=== PATIENT | female | born 1960 | race Caucasian/White ===

== ENCOUNTER 2016-12-19 15:49 | Emergency (ER) | END 2016-12-19 17:05 | disposition left against medical advice (07) | LOC: UCCORT 15:49 | DX: M79.605 Pain in left leg (principal); Z53.21 Procedure and treatment not carried out due to patient leaving prior to being seen by health care provider ==

== ENCOUNTER 2017-07-03 15:15 | Emergency (ER) | payer BC ==
[2017-07-03 18:21] VITALS: BP 115/82
[2017-07-03] MEDS ORDERED: Fluorescein Sodium TOPICAL* 1 MG TEST OPHTHALMIC ONE (18:22)
--- NOTE | 2017-07-03 18:30 | UC ---
Eye Complaint HPI - HPI Summary HPI Summary: L eye FB sensation, irritation starting 3-4 days ago. Some drainage, some runny nose. Denies known injury/trauma. Works around people with brain injury, needs tx if she has pink eye. - History of Current Complaint Chief Complaint: Ahsane Stated Complaint: PINK EYE Time Seen by Provider: 07/03/17 18:16 Hx Obtained From: Patient Hx Last Menstrual Period: had ablation ?: No Onset/Duration: Gradual Onset, Lasting Days Timing: Constant Severity Initially: Mild Severity Currently: Mild Location of Injury: Conjunctiva Character: Dull, Foreign Body Sensation Aggravating Factor(s): Nothing Alleviating Factor(s): Nothing Associated Signs And Symptoms: Positive: Drainage (Clear) - Allergies/Home Medications Allergies/Adverse Reactions: Allergies Allergy/AdvReac Type Severity Reaction Status Date / Time seasonal Allergy Congestion Uncoded 07/03/17 18:21 Home Medications: Home Medications Bismuth Subsalicylate [Pepto-Bismol Max Strength] 525 mg PO DAILY 07/03/17 [ History Confirmed 07/03/17] PMH/Surg Hx/FS Hx/Imm Hx Endocrine History: Dyslipidemia Cardiovascular History: Hypertension GI/ History: Gastroesophageal Reflux - Surgical History Surgical History: Yes Surgery Procedure, Year, and Place: tubal, hernia, varicose veins, uterine ablation - Family History Known Family History: Positive: Hypertension, Other - [place] (dad) - Social History Occupation: Employed Full-time Alcohol Use: Rare Substance Use Type: None Smoking Status (MU): Heavy Every Day Tobacco Smoker Type: Cigarettes Amount Used/How Often: 2-3 ppd Length of Time of Smoking/Using Tobacco: 41 yrs Have You Smoked in the Last Year: Yes Review of Systems Constitutional: Fatigue Skin: Negative Eyes: Drainage, Eye Redness ENT: Negative Respiratory: Negative Cardiovascular: Negative Gastrointestinal: Negative Genitourinary: Negative Motor: Negative Neurovascular: Negative Musculoskeletal: Negative Neurological: Negative Psychological: Negative Is Patient Immunocompromised?: No All Other Systems Reviewed And Are Negative: Yes Physical Exam Triage Information Reviewed: Yes Appearance: No Pain Distress, Obese Vital Signs: Initial Vital Signs Temp 97.7 F 07/03/17 18:17 Pulse 72 07/03/17 18:17 Resp 17 07/03/17 18:17 BP 115/82 07/03/17 18:17 Pulse Ox 99 07/03/17 18:17 Vital Signs Reviewed: Yes Eye Exam: Other - PERRL, EOM-I Eyes: Positive: Conjunctiva Inflamed, Other: - fluorescein dye test negative for uptake in L eye ENT Exam: Normal ENT: Positive: Normal ENT inspection, Hearing grossly normal, Pharynx normal, TM dull Dental Exam: Other - dentures Neck exam: Normal Respiratory Exam: Normal Respiratory: Positive: Chest non-tender, Lungs clear, Normal breath sounds, No respiratory distress, No accessory muscle use Cardiovascular Exam: Normal Cardiovascular: Positive: RRR, No Murmur Musculoskeletal Exam: Normal Neurological Exam: Normal Neurological: Positive: Alert Psychological Exam: Normal Skin Exam: Other - excoriations/irritation on neck under chin Eye Complaint Course/Dx - Differential Dx/Diagnosis Provider Diagnoses: L eye conjunctivitis Discharge - Discharge Plan Condition: Stable Disposition: HOME Prescriptions: Ciprofloxacin 0.3% OPTH.SAMUEL* [Cipro 0.3% Opth*] 2 drop LEFT EYE QID #5 ml Patient Education Materials: Conjunctivitis (ED) Referrals: Rica Chavira MD [Primary Care Provider] - Additional Instructions: See your primary care provider or return here if you still have symptoms after 1 week.
== END 2017-07-03 18:43 | disposition home or self-care (01) ==
LOC: UCCORT 15:15
DX: H10.32 Unspecified acute conjunctivitis, left eye (principal); R53.83 Other fatigue; E78.5 Hyperlipidemia, unspecified; I10 Essential (primary) hypertension; K21.0 Gastro-esophageal reflux disease with esophagitis; E66.9 Obesity, unspecified; F17.210 Nicotine dependence, cigarettes, uncomplicated
CPT/HCPCS: 99212; A9270-GY; G0463

== ENCOUNTER 2019-07-12 11:58 | Emergency (ER) | payer BC ==
[2019-07-12 13:21] VITALS: BP 120/76
--- NOTE | 2019-07-12 14:01 | ED ---
Upper Extremity Pain - HPI Summary HPI Summary: 59 yr old female with the complaint of right shoulder pain. Onset of pain was prior to arrival. She was at the [employer] and lifting a turkey, and felt pain in the right lateral posterior shoulder. Pain is worse with any attempted overhead movement. No numbness or weakness in the hand. No other complaints. - History of Current Complaint Chief Complaint: UCUpperExtremity Stated Complaint: RIGHT SHOULDER PAIN Time Seen by Provider: 07/12/19 13:29 Hx Last Menstrual Period: had ablation - Allergies/Home Medications Allergies/Adverse Reactions: Allergies Allergy/AdvReac Type Severity Reaction Status Date / Time "Starts with a "D"" Allergy Unknown Uncoded 07/12/19 13:15 Reaction Details seasonal Allergy Congestion Uncoded 07/12/19 13:15 Home Medications: Home Medications Allopurinol TAB* [Zyloprim 100 MG TAB*] 100 mg PO BID 07/12/19 [History Confirmed 07/12/19] Cyclobenzaprine TAB* [Flexeril 10 MG TAB*] 10 mg PO TID 07/12/19 [History Confirmed 07/12/19] Diclofenac Sodium 50 mg PO BID PRN 07/12/19 [History Confirmed 07/12/19] Simvastatin TAB(NF) [Zocor(NF)] 20 mg PO QPM 07/12/19 [History Confirmed ] PMH/Surg Hx/FS Hx/Imm Hx Cardiovascular History: Reports: Hx Hypertension Respiratory History: Reports: Hx Pneumonia - Surgical History Surgery Procedure, Year, and Place: tubal, hernia, varicose veins, uterine ablation Infectious Disease History: No Infectious Disease History: Denies: Traveled Outside the [place] in Last 30 Days - Family History Known Family History: Positive: Hypertension, Other - [place] (dad) - Social History Alcohol Use: Rare Substance Use Type: Reports: None Smoking Status (MU): Heavy Every Day Tobacco Smoker Type: Cigarettes Amount Used/How Often: 1-2 PPD Length of Time of Smoking/Using Tobacco: Since Age 13 Have You Smoked in the Last Year: Yes Review of Systems Constitutional: Negative Positive: Other - right shoulder pain All Other Systems Reviewed And Are Negative: Yes Physical Exam Triage Information Reviewed: Yes Vital Signs On Initial Exam: Initial Vitals Temp Pulse Resp BP Pulse Ox 98.1 F 88 20 120/76 100 07/12/19 13:11 07/12/19 13:11 07/12/19 13:11 07/12/19 13:11 07/12/19 13:11 Vital Signs Reviewed: Yes Appearance: Positive: Well-Appearing, No Pain Distress Skin: Positive: Warm, Skin Color Reflects Adequate Perfusion Head/Face: Positive: Normal Head/Face Inspection Eyes: Positive: EOMI ENT: Positive: Normal ENT inspection Neck: Positive: Nontender Respiratory/Lung Sounds: Positive: Clear to Auscultation, Breath Sounds Present Cardiovascular: Positive: Pulses are Symmetrical in both Upper and Lower Extremities Abdomen Description: Negative: Distended Musculoskeletal: Positive: Other - right hand with normal neuro vasc. She is tender over the lateral right shoulder and posterior right shoulder. She has pain that is worse with movement. and particularly lifting up arm in abduction or flexion movement. Neurological: Positive: Sensory/Motor Intact, Alert, Oriented to Person Place, Time, CN Intact II-III, Speech Normal Psychiatric: Positive: Normal Diagnostics - Vital Signs Vital Signs Temp Pulse Resp BP Pulse Ox 07/12/19 13:11 98.1 F 88 20 120/76 100 - Laboratory Lab Statement: Any lab studies that have been ordered have been reviewed, and results considered in the medical decision making process. Course/Dx - Course Course Of Treatment: 59 yr old with right shoulder pain. Plan DC home. FU with Ortho. - Diagnoses Provider Diagnoses: Injury of right rotator cuff Discharge ED - Sign-Out/Discharge Documenting (check all that apply): Patient Departure All imaging exams completed and their final reports reviewed: Yes - Discharge Plan Condition: Good Disposition: HOME Patient Education Materials: Rotator Cuff Injury (ED), Shoulder Pain (ED) Referrals: Gita Samuel MD [Primary Care Provider] - 2 Days Miller Pozo MD [Medical Doctor] - 2 Days - Billing Disposition and Condition Condition: GOOD Disposition: Home
== END 2019-07-12 14:13 | disposition home or self-care (01) ==
LOC: UCCORT 11:58
DX: S46.001A Unspecified injury of muscle(s) and tendon(s) of the rotator cuff of right shoulder, initial encounter (principal); I10 Essential (primary) hypertension; F17.210 Nicotine dependence, cigarettes, uncomplicated; Z91.09 Other allergy status, other than to drugs and biological substances; X50.0XXA Overexertion from strenuous movement or load, initial encounter; Y93.89 Activity, other specified; Y92.512 Supermarket, store or market as the place of occurrence of the external cause
CPT/HCPCS: 99211; G0463

== ENCOUNTER 2019-10-02 05:22 | Day surgery (SDC) | payer BC ==
[~2019-10-02 05:22] MED LIST: Buffered Lidocaine 1% SYRIN* 1 ML/SYRINGE INTRADERM ONE
[2019-10-02] MEDS ORDERED: Acetaminophen TAB* 325 MG PO ONE (06:00)
[2019-10-02] MEDS ORDERED: Lactated Ringers 1000 ML Bag* 1,000 ML IV SCH (06:00)
[2019-10-02] MEDS ORDERED: ceFAZolin 2 GM in NS PREMIX(*) 2 GM/100 ML BAG IVPB ONE (06:07)
[2019-10-02] MEDS ORDERED: ceFAZolin 1 GM ADVAN(*) 1 GM ADDV.VIAL IVPB ONE (06:07)
[2019-10-02] MEDS ORDERED: Acetaminophen TAB* 325 MG ONE (06:07)
[2019-10-02] MEDS ORDERED: Midazolam* 1 MG/ML 2 ML VIAL (2 MG) ONE (06:53)
[2019-10-02] MEDS ORDERED: Lidocaine 2% PF * 5 ML VIAL ONE (06:54)
[2019-10-02] MEDS ORDERED: fentaNYL* 50 MCG/ML 5 ML VIAL (250 MCG VIAL) ONE (06:54)
[2019-10-02] MEDS ORDERED: Propofol* 10 MG/ML 20 ML BTL ONE (06:54)
[2019-10-02] MEDS ORDERED: Bupivacaine 0.5% W/EPI SDV* 10 ML VIAL INJ ONE (06:59)
[2019-10-02] MEDS ORDERED: EPINEPHRINE 1 MG/ML 1 ML VIAL ONE (06:59)
[2019-10-02] MEDS ORDERED: Rocuronium* 10 MG/ML VIAL ONE (07:00)
[2019-10-02] MEDS ORDERED: ROPIVACAINE 5 MG/ML 30 ML BTL (0.5%) ONE ×2 (07:08→10:21)
[2019-10-02] MEDS ORDERED: Remifentanil* 2 MG VIAL ONE (07:45)
[2019-10-02] MEDS ORDERED: HYDROmorphone INJ1* 1 MG/ML SYRINGE ONE (08:20)
[2019-10-02] MEDS ORDERED: Dexamethasone IV* 4 MG/ML 1 ML (4 MG) ONE (08:27)
[2019-10-02] MEDS ORDERED: Ketorolac INJ* 30 MG/ML 1 ML VIAL ONE (08:48)
[2019-10-02] MEDS ORDERED: Glycopyrrolate IV* 0.2 MG/ML 1 ML VIAL ONE ×2 (08:48→11:02)
[2019-10-02] MEDS ORDERED: Ondansetron INJ* 2 MG/ML VIAL ONE (08:48)
[2019-10-02] MEDS ORDERED: Neostigmine Methylsulfate* 3 MG/3 ML SYRINGE ONE (08:48)
[2019-10-02] MEDS ORDERED: PROCHLORPERAZINE INJ 5 MG/ML 2 ML VIAL IV PRN (08:49)
[2019-10-02] MEDS ORDERED: diPHENhydraMINE IV* 50 MG/ML 1 ml VIAL (BENADRYL) IV PRN (08:49)
[2019-10-02] MEDS ORDERED: Naloxone* 0.4 MG/ML 1 ML VIAL IV PRN (08:49)
[2019-10-02] MEDS ORDERED: HYDROmorphone INJ1* 1 MG/ML SYRINGE IV PRN (08:49)
[2019-10-02] MEDS ORDERED: PROCHLORPERAZINE INJ 5 MG/ML 2 ML VIAL ONE (10:23)
[2019-10-02] MEDS ORDERED: oxyCODONE TAB* 5 MG TAB ONE (10:23)
[2019-10-02] MEDS: oxyCODONE TAB* 5 MG TAB PO PRN ×2 (10:35→10:36)
[2019-10-02 11:36] VITALS: BP 125/81
--- NOTE | 2019-10-03 01:38 | OP ---
DATE OF OPERATION: 10/02/19 [facility] DATE OF : 62 SURGEON: Dr. Junior Brennan. HUMAN SERVICES PROGRAM SPECIALIST: DANNI Perez. A physician assistant manager was required for the length of the procedure for assistance with patient positioning, instrumentation , and closure. ANESTHESIOLOGIST: Dr. Leona Aguirre. ANESTHESIA: General anesthesia, regional interscalene block anesthesia. PRE-OP DIAGNOSES: 1. Right shoulder rotator cuff tears, supraspinatus, infraspinatus, full thickness, retracted. 2. Right shoulder subacromial impingement and bursitis. 3. Right shoulder acromioclavicular joint osteoarthritis. 4. Possible right shoulder biceps tendinosis. POST-OP DIAGNOSES: 1. Right shoulder rotator cuff tendon tears, supraspinatus, infraspinatus, full thickness, retracted. 2. Right shoulder subacromial impingement and bursitis. 3. Right shoulder mild acromioclavicular joint osteoarthritis. 4. Right shoulder superior labral tear. OPERATIVE PROCEDURE: 1. Right shoulder arthroscopic rotator cuff tendon repair, supraspinatus, infraspinatus with a double-row fixation construct. 2. Right shoulder arthroscopic subacromial decompression. 3. Right shoulder arthroscopic limited debridement including long head biceps tendon release and anterior interval slide as well as generalized debridement to otherwise mobilized rotator cuff tendons. ANTIBIOTICS: Ancef 3 g IV. IV FLUIDS: See Anesthesia note. TOAB-DD-IPGK TIME: 83 minutes. SPECIMEN: None. IMPLANTS: Arthrex Corkscrew 5.5-mm suture anchors double-loaded with sutured tape x2. Arthrex 5.5-mm SwiveLock suture anchor x1. COMPLICATIONS: None. ESTIMATED BLOOD LOSS: Minimal. INDICATIONS FOR PROCEDURE: The patient is a 59-year-old woman, right-hand dominant, who has a 47-ubot-dwlc history of cigarette smoking and has a job with duties including doing laundry and dishes, who presented to me after being referred by a partner for injuries to the right shoulder in June and July 2019. The patient failed to respond sufficiently to nonoperative management and opted for surgery. MRI demonstrated bony changes consistent with subacromial impingement as well as subacromial bursitis. There were supraspinatus and infraspinatus rotator cuff tendon tears. Supraspinatus was retracted to somewhere between the apex and the glenoid, closer to the glenoid. Much of the infraspinatus seemed similarly torn and retracted. There was much fatty atrophy of the infraspinatus muscle on sagittal slices. I discussed the surgery with the patient. Because of her history of cigarette smoking as well as her amount of retraction and fatty atrophy, this procedure has a much higher than average likelihood of failure. I booked the patient for rotator cuff tendon repair versus superior capsular repair versus partial rotator cuff tendon repair, based on the repairability of the supraspinatus and the infraspinatus that I would find intraoperatively. Given that preoperatively, the patient had an extensor lag to 0 degrees with the arm at the side and infraspinatus muscle fatty atrophy along with the history of cigarette smoking, I was not particularly confident about the stoutness of the patient's infraspinatus and her candidacy for superior capsule repair, but I kept all possibilities open. I spoke to the patient about the importance of cigarette smoking cessation. Interestingly in the contralateral left shoulder on exam, the patient had a lag to 10 degrees of external rotation with the arm at the side. She also had worst pain and weakness with supraspinatus and infraspinatus stress testing. This led me to think that the patient likely has a chronic massive rotator cuff tear in the contralateral left shoulder as well that she has just grown accustomed to and has stopped being painful. Discussed risks and potential complications of surgery including the potential for rerupture. DESCRIPTION OF PROCEDURE: In preoperative holding, the patient signed a written consent. Operative extremity was marked in preoperative holding. The patient underwent a regional interscalene nerve block by Dr. Aguirre in preoperative holding. The patient was brought back to the operating room and placed supine on the operating room table. The patient was sedated and intubated. After a mini time-out was performed, an examination under anesthesia of the right shoulder demonstrated full passive range of motion. The patient was placed in the lateral decubitus position with the right shoulder up. Axillary roll placed. Beanbag hardened. All bony prominences padded. Right upper extremity placed in 15 pounds of longitudinal traction with the appropriate amount of shoulder forward flexion and abduction. Right shoulder was prepped and draped. Surgical time-out performed. I entered a spinal needle into the glenohumeral joint from posterior about the right shoulder. I infused 30 cc of normal saline. I established a posterior glenohumeral joint portal. I commenced my diagnostic arthroscopy. The patient did not have any advanced osteoarthritic changes of the glenohumeral joint. Nothing worst than grade 0 or grade 1. There was a tiny bit of elevation superiorly of the humeral head appreciated. Subscapularis tendon had no tear. Looking superiorly, the patient clearly had full thickness tears of the supraspinatus and infraspinatus as much of their footprints were bare on the humeral head. There was only a hyperemic solitary streak on the long head biceps tendon so that was otherwise relatively normal. However, there was an unstable superior labral tear. I established an anterior glenohumeral joint portal under direct visualization. I probed the superior labrum and found it to be unstable with this tear. I brought an arthroscopic scissors in and released the long head biceps tendon near its origin. I debrided some of the superior labrum with an arthroscopic shaver. I established anterior and posterior subacromial portals. I then made posterolateral and lateral portals under direct visualization. I debrided the subacromial bursitis with an arthroscopic shaver. I next assessed the rotator cuff tendons. Supraspinatus and much of the infraspinatus was clearly visible to be retracted to the level of glenoid. When I first used a rotator cuff grasper to try to lateralize the supraspinatus , the cuff grasper pulled through tendon. This was not inspiring with regards to the quality of the tendon tissue. There was some synovitis posteriorly that I debrided coming down on to the actual infraspinatus. Some of the infraspinatus had clearly listed inferiorly while some of it still was intact in its insertion of the humeral head. I placed a traction stitch in the supraspinatus. I first decided to superiorize some of the intact infraspinatus. I thought that this would help cover some of the humeral head and then give me a feel for the appropriateness of either superior capsule repair or rotator cuff repair. Through a superolateral poke hole, I placed a Corkscrew suture anchor. This was placed slightly more medial than lateral in the footprint. I then used a scorpion suture passer to pass 2 horizontal mattress stitches in the infraspinatus. This superiorized some of the intact infraspinatus. I next evaluated the supraspinatus. Surprisingly, I was able to pivot humeral head. Given my lack of confidence in the infraspinatus and patient's smoking, my preference was for a simple rotator cuff repair rather than a superior capsule repair. I next performed an anterior interval slide, releasing tissue in the rotator cuff interval, which did improve the mobilization of the supraspinatus. I placed next through a superolateral poke hole a Corkscrew suture anchor more lateral than medial in the supraspinatus footprint. I was not sure what type of excursion of the tendon or quality repair I would get. My expectations were limited placing this anchor. However, I was very surprised by the result. I placed 2 horizontal mattress stitches using a Affleion suture passer and I tied as I went. This brought a solid amount of tendon down to bone. As I said before this anchor was more lateral than medial in the footprint but nonetheless I brought the tendon to bone under minimum of tension. This covered the entirety of the footprint except for perhaps 5% of it anteriorly. I was very happy with this. Given the success of my first 2 anchors, I decided to add a lateral row anchor. A SwiveLock was placed using the stitches from the 2 medial row anchors. I moved the humerus and probed the repair and it was good. Again, my expectations on healing are modest given this patient's smoking history and the likely temporal nature and stiffness of her rotator cuff tendons; however, this was an excellent repair surprisingly. I next performed a subacromial decompression. I used an arthroscopic emigdio to smooth out the undersurface of the anterior aspect of the acromion. I was not aggressive releasing the coracoacromial ligament as I wanted to avoid any possibility of future anterosuperior escape. I assessed the AC joint. There were no large spurs about it so I held off on a distal clavicle resection. Fluid and instruments were removed from the subacromial space. Closed skin incisions with [id number] 12 stitches using nylon 3.0 suture. Xeroform, 4x4's, ABDs, foam tape. Sling and abduction pillow. The patient was awakened and transferred to the PACU. DISPOSITION: The patient will be in a sling at all times for at least 6 weeks postoperatively if not 8. Percocet as needed for pain control. No physical therapy at this time. The patient will follow up with me in 10 to 14 days postoperatively. I also again reminded the patient to cut down or quit her cigarette smoking. [id number]/[facility] #: [id number] [facility]
== END 2019-10-02 11:40 | disposition home or self-care (01) ==
LOC: OR 05:22
PROVIDERS: ATTEND Orthopaedic Surgery
DX: S46.011A Strain of muscle(s) and tendon(s) of the rotator cuff of right shoulder, initial encounter (principal); S43.491A Other sprain of right shoulder joint, initial encounter; M75.41 Impingement syndrome of right shoulder; M75.51 Bursitis of right shoulder; M19.011 Primary osteoarthritis, right shoulder; X58.XXXA Exposure to other specified factors, initial encounter; Y92.9 Unspecified place or not applicable; G89.18 Other acute postprocedural pain; I10 Essential (primary) hypertension; E78.00 Pure hypercholesterolemia, unspecified; F17.210 Nicotine dependence, cigarettes, uncomplicated; K21.9 Gastro-esophageal reflux disease without esophagitis; D64.9 Anemia, unspecified
CPT/HCPCS: A9270-GY; C1713; J0690; J0780; J1100; J1170; J1885; J2250; J2405; J2704; J2710; J2795; J3010